=== PATIENT | male | born 1960 | race Two or more races ===

== ENCOUNTER 2022-10-05 07:16 | Emergency (ER) | payer SELFPAY ==
[~2022-10-05] VITALS: Ht 182.9 cm; Wt 72.0 kg
[2022-10-05 07:21] VITALS: BP 129/70
[2022-10-05] MEDS ORDERED: ACETAMINOPHEN 325MG TABLET PO ONE (07:30)
== END 2022-10-05 08:36 | disposition home or self-care (01) ==
LOC: ER 07:16
DX: M79.604 Pain in right leg (principal); M79.605 Pain in left leg; I10 Essential (primary) hypertension; E11.9 Type 2 diabetes mellitus without complications; I25.2 Old myocardial infarction; G89.29 Other chronic pain
CPT/HCPCS: 99283